=== PATIENT | male | born 1970 | race Caucasian/White ===

== ENCOUNTER 2020-04-28 19:13 | Emergency (ER) | payer OTHER ==
[~2020-04-28] VITALS: Ht 172.7 cm; Wt 78.0 kg
[2020-04-28] MEDS ORDERED: IBUPROFEN 800MG TABLET PO ONE (20:00)
[2020-04-28] MEDS ORDERED: METHOCARBAMOL 750MG TABLET PO SCH (21:30)
[2020-04-28] MEDS ORDERED: HYDROCODONE/ACETAMINOPHEN 5/325MG TABLET PO ONE (21:30)
[2020-04-28 21:56] VITALS: BP 128/89
== END 2020-04-28 21:59 | disposition home or self-care (01) ==
LOC: ER 19:13
DX: S39.012A Strain of muscle, fascia and tendon of lower back, initial encounter (principal); V49.88XA Car occupant (driver) (passenger) injured in other specified transport accidents, initial encounter; Y93.89 Activity, other specified; Y92.89 Other specified places as the place of occurrence of the external cause; Y99.8 Other external cause status
CPT/HCPCS: 99283